=== PATIENT | female | born 1940 | race Caucasian/White ===

== ENCOUNTER → 2017-12-17 10:31 | Outpatient (CLI) | payer MEDICARE, OTHER, SELFPAY ==
[2017-12-17 12:00] LABS: Cholesterol 232 mg/dL (140-199); HDL Cholesterol 97 mg/dL (40-60); LDL Cholesterol Calculated 118 mg/dL (<100); Triglycerides 83 mg/dL (35-150)
[2017-12-17 12:20] LABS: Free T3, Triiodothyronine Free 2.55 pg/mL (2.77-5.27); Free T4, Direct Thyroxine 1.46 ng/dL (0.78-2.19)
[2017-12-17 12:34] LABS: Thyroid Stimulating Hormone 1.11 uIU/mL (0.47-4.68)
== END ==
PROVIDERS: PCP Specialist; Visit Provider Specialist
DX: R79.89 Other specified abnormal findings of blood chemistry (principal); Z13.220 Encounter for screening for lipoid disorders
CPT/HCPCS: 36415; 80061; 84439; 84443; 84481